=== PATIENT | male | born 1955 | race Caucasian/White ===

== ENCOUNTER 2017-07-28 18:22 | Emergency (ER) | payer OTHER ==
[~2017-07-28] VITALS: Ht 175.3 cm; Wt 87.2 kg
[~2017-07-28 18:22] MED LIST: CYCL-36 PO; HYDR10SO PO; NAPR500 PO; OMEP20TA OR; TRAZ100 PO
[2017-07-28 18:24] VITALS: BP 122/75; PULSE 91; RESP 16; TEMP 98.4; O2SAT 97
[2017-07-28] MEDS ORDERED: SIMV20TA PO (18:45)
[2017-07-28] MEDS ORDERED: SODIUM CHLORIDE 0.9% FLUSH 10 ML FLUSH IVF PRN (18:45)
[2017-07-28] MEDS ORDERED: GABA300C5 PO (18:45)
[2017-07-28] MEDS ORDERED: LISI20TA PO (18:45)
[2017-07-28] MEDS ORDERED: CYMB30CA PO (18:45)
[2017-07-28 18:48] VITALS: O2SAT 95
--- NOTE | 2017-07-28 18:49 | PD ---
HPI Chief Complaint: Cardiac Complaint Time Seen by Provider: 18:45 Travel History International Travel<30 days: No Contact w/Intl Traveler<30days: No Traveled to known affect area: No History of Present Illness HPI 62-year-old male presents emergency department for evaluation of an episode of atrial fibrillation with RVR he had yesterday. He states he was at the neurologist for an episode of sciatic he was having states he generally was not feeling well yesterday feeling somewhat lethargic and a little bit nauseous yesterday. He had an EKG performed when his heart rate was found to be significantly elevated, he states he was discharged from the neurology clinic without knowing the results of that. Ultimately he was called several times today telling him that he had atrial for ablation with RVR and needed follow-up with a emergency department as soon as possible. The patient states his been feeling well today and in no distress at all. No chest pain no shortness of breath no abdominal pain no nausea vomiting or palpitations. He also endorses some minimal shortness of breath he had yesterday but none today. No history of long periods of stasis. States he has never had atrial fibrillation before. He states he has seen a vest tailor in the past and his last visit was a little over a year ago at which point a stress test which was negative. PFSH Past Medical History Hx Anticoagulant Therapy: Yes (ASA 81mg daily) Hypertension: Yes Social History Alcohol Use: Yes (OCC) Tobacco Use: No Substance Use: No Allergies-Medications (Allergen,Severity, Reaction): Coded Allergies: No Known Allergies (Unverified Adverse Reaction, Unknown, 07/28/17) Reported Meds & Prescriptions Reported Meds & Active Scripts Active Reported Gabapentin 300 Mg Cap 300 Mg PO BID Cymbalta DR (Duloxetine HCl) 30 Mg Capdr 30 Mg PO DAILY Simvastatin 20 Mg Tab 20 Mg PO DAILY Lisinopril-Hctz 20-12.5 Mg Tab 1 Tab PO DAILY Review of Systems Except as stated in HPI: all other systems reviewed are Neg Physical Exam Narrative GENERAL: Well-developed well-nourished no obvious distress. SKIN: Focused skin assessment warm/dry. HEAD: Atraumatic. Normocephalic. EYES: Pupils equal and round. No scleral icterus. No injection or drainage. ENT: No nasal bleeding or discharge. Mucous membranes pink and moist. NECK: Trachea midline. No JVD. CARDIOVASCULAR: Regular rate and rhythm with no murmurs gallops or rubs. 2+ bilateral equal pulses in all 4 extremities. RESPIRATORY: No accessory muscle use. Clear to auscultation. Breath sounds equal bilaterally. GASTROINTESTINAL: Abdomen soft, non-tender, nondistended. Hepatic and splenic margins not palpable. MUSCULOSKELETAL: No obvious deformities. No clubbing. No cyanosis. No edema. NEUROLOGICAL: Awake and alert. No obvious cranial nerve deficits. Motor grossly within normal limits. Normal speech. PSYCHIATRIC: Appropriate mood and affect; insight and judgment normal. Data Data Last Documented VS Vital Signs Date Time Temp Pulse Resp B/P (MAP) Pulse Ox O2 Delivery O2 Flow Rate FiO2 07/28/17 18:24 98.4 91 16 122/75 (91) 97 Orders Orders Ckmb (Isoenzyme) Profile (07/28/17 18:45) Complete Blood Count With Diff (07/28/17 18:45) Comprehensive Metabolic Panel (07/28/17 18:45) Magnesium (Mg) (07/28/17 18:45) Prothrombin Time / Inr (Pt) (07/28/17 18:45) Act Partial Throm Time (Ptt) (07/28/17 18:45) Troponin I (07/28/17 18:45) Chest, Single Ap (07/28/17 18:45) Ecg Monitoring (07/28/17 18:45) Iv Access Insert/Monitor (07/28/17 18:45) Oximetry (07/28/17 18:45) Oxygen Administration (07/28/17 18:45) Sodium Chloride 0.9% Flush (Ns Flush) (07/28/17 18:45) [facility] [place] Medical Decision Making Medical Screen Exam Complete: Yes Emergency Medical Condition: Yes Differential Diagnosis New onset atrial fibrillation, RVR, ACS, DC, presyncopal symptoms. Narrative Course Patient room to the emergency department, today he is in normal sinus rhythm, blood pressure is within normal limits as well and has not had any presyncopal symptoms today. Cardiac labs have been ordered, will discuss with Dr. Schaffer in 1900 shift change to follow-up labs and disposition the patient appropriately Keagan Garces MD July 28, 2017 18:49
--- NOTE | 2017-07-28 19:01 | PD ---
Physical Exam Date Seen by Provider: July 28, 2017 Time Seen by Provider: 18:59 Narrative The patient is a 62-year-old male was initially evaluated by the previous physician, Dr. Garces. Please refer to the initial history, physical, diagnostic evaluation, and treatment modality plan. The patient was signed out at 7 PM with laboratory evaluation and chest x-ray pending. Data Data Last Documented VS Vital Signs Date Time Temp Pulse Resp B/P (MAP) Pulse Ox O2 Delivery O2 Flow Rate FiO2 07/28/17 19:22 Room Air 07/28/17 19:22 105 17 118/82 (94) 98 07/28/17 18:24 98.4 Orders Orders Ckmb (Isoenzyme) Profile (07/28/17 18:45) Complete Blood Count With Diff (07/28/17 18:45) Comprehensive Metabolic Panel (07/28/17 18:45) Magnesium (Mg) (07/28/17 18:45) Prothrombin Time / Inr (Pt) (07/28/17 18:45) Act Partial Throm Time (Ptt) (07/28/17 18:45) Troponin I (07/28/17 18:45) Chest, Single Ap (07/28/17 18:45) Ecg Monitoring (07/28/17 18:45) Iv Access Insert/Monitor (07/28/17 18:45) Oximetry (07/28/17 18:45) Oxygen Administration (07/28/17 18:45) Sodium Chloride 0.9% Flush (Ns Flush) (07/28/17 18:45) CKMB (07/28/17 18:57) CKMB% (07/28/17 18:57) Metoprolol Tartrate (Lopressor) (07/28/17 19:45) Ed Discharge Order (07/28/17 19:42) Labs Laboratory Tests Test 07/28/17 18:57 White Blood Count 5.1 TH/MM3 Red Blood Count 4.59 MIL/MM3 Hemoglobin 13.8 GM/DL Hematocrit 40.3 % Mean Corpuscular Volume 87.9 FL Mean Corpuscular Hemoglobin 30.1 PG Mean Corpuscular Hemoglobin Concent 34.3 % Red Cell Distribution Width 13.4 % Platelet Count 186 TH/MM3 Mean Platelet Volume 8.1 FL Neutrophils (%) (Auto) 46.2 % Lymphocytes (%) (Auto) 36.5 % Monocytes (%) (Auto) 10.9 % Eosinophils (%) (Auto) 5.5 % Basophils (%) (Auto) 0.9 % Neutrophils # (Auto) 2.3 TH/MM3 Lymphocytes # (Auto) 1.9 TH/MM3 Monocytes # (Auto) 0.6 TH/MM3 Eosinophils # (Auto) 0.3 TH/MM3 Basophils # (Auto) 0.0 TH/MM3 CBC Comment DIFF FINAL Differential Comment Prothrombin Time 10.0 SEC Prothromb Time International Ratio 1.0 RATIO Activated Partial Thromboplast Time 26.5 SEC Blood Urea Nitrogen 12 MG/DL Creatinine 0.72 MG/DL Random Glucose 108 MG/DL Total Protein 7.4 GM/DL Albumin 4.1 GM/DL Calcium Level 9.3 MG/DL Magnesium Level 2.0 MG/DL Alkaline Phosphatase 78 U/L Aspartate Amino Transf (AST/SGOT) 39 U/L Alanine Aminotransferase (ALT/SGPT) 59 U/L Total Bilirubin 0.4 MG/DL Sodium Level 138 MEQ/L Potassium Level 3.5 MEQ/L Chloride Level 101 MEQ/L Carbon Dioxide Level 27.4 MEQ/L Anion Gap 10 MEQ/L Estimat Glomerular Filtration Rate 111 ML/MIN Total Creatine Kinase 358 U/L Creatine Kinase MB 3.2 NG/ML Creatine Kinase MB % 0.9 % Troponin I LESS THAN 0.02 NG/ML [facility] [place] Medical Record Reviewed: Yes Supervised Visit with FRANNY: No Interpretation(s) EKG reveals normal sinus rhythm with a rate of 93. RSR prime in V1. Q-wave noted in lead III. Laboratory Tests Test 07/28/17 18:57 White Blood Count 5.1 TH/MM3 Red Blood Count 4.59 MIL/MM3 Hemoglobin 13.8 GM/DL Hematocrit 40.3 % Mean Corpuscular Volume 87.9 FL Mean Corpuscular Hemoglobin 30.1 PG Mean Corpuscular Hemoglobin Concent 34.3 % Red Cell Distribution Width 13.4 % Platelet Count 186 TH/MM3 Mean Platelet Volume 8.1 FL Neutrophils (%) (Auto) 46.2 % Lymphocytes (%) (Auto) 36.5 % Monocytes (%) (Auto) 10.9 % Eosinophils (%) (Auto) 5.5 % Basophils (%) (Auto) 0.9 % Neutrophils # (Auto) 2.3 TH/MM3 Lymphocytes # (Auto) 1.9 TH/MM3 Monocytes # (Auto) 0.6 TH/MM3 Eosinophils # (Auto) 0.3 TH/MM3 Basophils # (Auto) 0.0 TH/MM3 CBC Comment DIFF FINAL Differential Comment Prothrombin Time 10.0 SEC Prothromb Time International Ratio 1.0 RATIO Activated Partial Thromboplast Time 26.5 SEC Blood Urea Nitrogen 12 MG/DL Creatinine 0.72 MG/DL Random Glucose 108 MG/DL Total Protein 7.4 GM/DL Albumin 4.1 GM/DL Calcium Level 9.3 MG/DL Magnesium Level 2.0 MG/DL Alkaline Phosphatase 78 U/L Aspartate Amino Transf (AST/SGOT) 39 U/L Alanine Aminotransferase (ALT/SGPT) 59 U/L Total Bilirubin 0.4 MG/DL Sodium Level 138 MEQ/L Potassium Level 3.5 MEQ/L Chloride Level 101 MEQ/L Carbon Dioxide Level 27.4 MEQ/L Anion Gap 10 MEQ/L Estimat Glomerular Filtration Rate 111 ML/MIN Total Creatine Kinase 358 U/L Creatine Kinase MB 3.2 NG/ML Creatine Kinase MB % 0.9 % Troponin I LESS THAN 0.02 NG/ML Last Impressions Chest X-Ray 07/28/17 7204 Signed Impressions: CONCLUSION: The lungs are clear. Differential Diagnosis Differential diagnosis includes paroxysmal atrial fibrillation, arrhythmia, near syncope, electrolyte abnormality, coronary artery disease, ischemic cardiomyopathy. Narrative Course Patient was initially evaluated by the previous physician, Dr. Garces. Please refer to the initial history, physical, diagnostic evaluation, and treatment modality plan. The patient was signed out at 7 PM with laboratory evaluation and chest x-ray pending. The patient apparently was seen at the neurologist office yesterday where he was noted to have atrial fibrillation with RVR. Today 's EKG reveals normal sinus rhythm with an RSR prime in V1, incomplete right bundle branch block, Q-wave in lead III. The patient appears to have paroxysmal atrial fibrillation, now in sinus rhythm and rate controlled. Chest x-ray is unremarkable. Electrolytes are normal. Troponin is less than 0.02. The patient has hypertension but denies any history of congestive heart failure , diabetes, or stroke. The patient already takes a baby aspirin daily, is currently on lisinopril and hydrochlorothiazide for blood pressure management. I had a discussion with the patient regarding 23 hour observation for new onset proximal atrial fibrillation versus outpatient follow-up. The patient would prefer to follow-up as an outpatient. Therefore, patient is advised to continue aspirin daily, I will place the patient on metoprolol 12.5 mg twice a day. He is advised to follow-up with [facility] cardiology as he may benefit from outpatient echocardiogram and/or Holter monitor. I also had a discussion with the patient regarding possibility of oral anticoagulation for his atrial fibrillation to decrease his stroke risk. The patient agrees and understands. Diagnosis Primary Impression: Paroxysmal atrial fibrillation Patient Instructions: General Instructions Additional Instruction: Please provide the patient a copy of his EKG and lab results at discharge. Metoprolol twice a day as directed. Continue aspirin daily. Follow-up with [facility] cardiology, he may benefit from echocardiogram and/or Holter monitor as well as discussion about anticoagulation to decrease stroke risk with proximal atrial fibrillation. Med/Other Pt SpecificInfo: Prescription(s) given Scripts Metoprolol Tartrate (Metoprolol Tartrate) 25 Mg Tab 12.5 MG PO BID for 30 Days, #30 TAB 0 Refills Prov: Brice Schaffer MD 07/28/17 Disposition: 01 DISCHARGE HOME Condition: Stable Brice Schaffer MD July 28, 2017 19:01
[2017-07-28 19:03] LABS: AUTOMATED NEUTROPHIL # 2.3 TH/MM3 (1.8-7.7); BASOPHIL % 0.9 % (0.0-2.0); EOSINOPHIL # 0.3 TH/MM3 (0-0.4); EOSINOPHIL % 5.5 % (0.0-4.0); HEMATOCRIT 40.3 % (39.0-51.0); HEMOGLOBIN 13.8 GM/DL (13.0-17.0); LYMPH % 36.5 % (9.0-44.0); LYMPHOCYTE # 1.9 TH/MM3 (1.0-4.8); MEAN CELL VOLUME 87.9 FL (80.0-100.0); MEAN CORPUSCULAR HEMOGLOBIN 30.1 PG (27.0-34.0); MEAN CORPUSCULAR HGB CONC 34.3 % (32.0-36.0); MEAN PLATELET VOLUME 8.1 FL (7.0-11.0); MONO % 10.9 % (0.0-8.0); MONOCYTE # 0.6 TH/MM3 (0-0.9); NEUT % 46.2 % (16.0-70.0); PLATELET COUNT 186 TH/MM3 (150-450); RED BLOOD COUNT 4.59 MIL/MM3 (4.50-5.90); RED CELL DISTRIBUTION WIDTH 13.4 % (11.6-17.2); WHITE BLOOD COUNT 5.1 TH/MM3 (4.0-11.0)
[2017-07-28 19:11] LABS: CHLORIDE 101 MEQ/L (98-107); SODIUM (NA) 138 MEQ/L (136-145)
[2017-07-28 19:14] LABS: CALCIUM 9.3 MG/DL (8.5-10.1)
[2017-07-28 19:15] LABS: ALBUMIN 4.1 GM/DL (3.4-5.0); BICARBONATE 27.4 MEQ/L (21.0-32.0); BLOOD UREA NITROGEN 12 MG/DL (7-18); GLUCOSE,RANDOM 108 MG/DL (74-106)
[2017-07-28 19:18] LABS: ALT (GPT) 59 U/L (12-78); AST (GOT) 39 U/L (15-37); CREATININE 0.72 MG/DL (0.60-1.30); GLOMERULAR FILTRATION RATE 111 ML/MIN (>89)
[2017-07-28 19:20] LABS: TOTAL BILIRUBIN ADULT 0.4 MG/DL (0.2-1.0); TOTAL PROTEIN 7.4 GM/DL (6.4-8.2)
--- NOTE | 2017-07-28 19:20 | RADRPT ---
EXAM DATE: 07/28/2017 7:18 PM EDT AGE/SEX: 62 years / Male INDICATIONS: Chest discomfort. Atrial fibrillation. CLINICAL DATA: This is the patient's initial encounter. Patient reports that signs and symptoms have been present for 2 days and indicates a pain score of 2/10. MEDICAL/SURGICAL HISTORY: Rheumatoid arthritis. Hypercholesterolemia. Hypertension. Sciatica . None. COMPARISON: No prior [facility] exams available for comparison. FINDINGS: A single AP view of the chest demonstrates the lungs to be symmetrically aerated without e vidence of mass, infiltrate or effusion. The cardiomediastinal contours are unremarkable. Osseous s tructures are intact. CONCLUSION: The lungs are clear. Electronically signed by: Adin Benavides MD 07/28/2017 7:19 PM EDT
[2017-07-28 19:21] LABS: ALKALINE PHOSPHATASE 78 U/L (45-117)
[2017-07-28 19:22] VITALS: BP 118/82; PULSE 105; RESP 17; O2SAT 98
[2017-07-28 19:23] LABS: TROPONIN I LESS THAN 0.02 NG/ML (0.02-0.05)
[2017-07-28] MEDS ORDERED: METOPROLOL TARTRATE 25 MG TAB PO ONE (19:45)
[2017-07-28] MEDS ORDERED: METO25TA3 PO (19:47)
[2017-07-28] MEDS ORDERED: PILL SPLITTER OTHER PRN (20:00)
--- NOTE | 2017-07-28 20:20 | EKG ---
Date Performed: 07/28/2017 Time Performed: 18:31:58 PTAGE: 62 years EKG: Sinus rhythm INCOMPLETE RIGHT BUNDLE BRANCH BLOCK ABNORMAL ECG NO PREVIOUS TRACING DOCTOR: Tate Muñoz Interpretating Date/Time 07/28/2017 20:19:11
[2017-07-28 20:24] VITALS: BP 116/82
== END 2017-07-28 20:31 | disposition home or self-care (01) ==
LOC: PHED 18:22
DX: I48.0 Paroxysmal atrial fibrillation (principal); R06.02 Shortness of breath; I10 Essential (primary) hypertension
CPT/HCPCS: 71045; 80053; 82550; 82552; 83735; 84484; 85025; 85610; 85730; 93005; 99285

== ENCOUNTER 2017-09-19 23:29 | Observation (INO) ==
--- NOTE | 2017-09-20 00:35 | XR ---
EXAM DATE: 09/20/2017 12:25 AM EDT AGE/SEX: 62 years / Male INDICATIONS: Dizziness. Syncopal episode. CLINICAL DATA: This is the patient's initial encounter. Patient reports that signs and symptoms have been present for 1 day and indicates a pain score of 0/10. MEDICAL/SURGICAL HISTORY: . Rheumatoid arthritis. Hypercholesterolemia. Hypertension. Sciatica. . Multiple orthopedic surgeries. COMPARISON: [facility], CHEST SINGLE AP, 07/28/2017. . FINDINGS: Slight scarring or subsegmental atelectasis in the left lung base. Right lung is clear. No pleural ef fusion. Cardiac contours are stable and satisfactory. Mild degenerative changes in the spine. CONCLUSION: Minimal left base parenchymal opacity. Electronically signed by: Armani Temple MD 09/20/2017 12:34 AM EDT
[2017-09-20 01:00] LABS: Baso # (Auto) 0.1 th/mm3 (0.0-0.2); Baso % (Auto) 0.6 % (0.0-2.0); Eos # (Auto) 0.3 th/mm3 (0.0-0.4); Eos % (Auto) 4.1 % (0.0-4.0); Hematocrit 36.4 % (39.0-51.0); Hemoglobin 12.2 gm/dL (13.0-17.0); Lymph # (Auto) 1.6 th/mm3 (1.0-4.8); Lymph % (Auto) 19.2 % (9.0-44.0); Mean Corpuscular HGB Conc 33.5 % (32.0-36.0); Mean Corpuscular Hemoglobin 30.9 pg (27.0-34.0); Mean Corpuscular Volume 92.3 fL (80.0-100.0); Mean Platelet Volume 8.4 fL (7.0-11.0); Mono # (Auto) 0.9 th/mm3 (0.0-0.9); Mono % (Auto) 10.9 % (0.0-8.0); Neut # (Auto) 5.5 th/mm3 (1.8-7.7); Neut % (Auto) 65.2 % (16.0-70.0); Platelet Count 143 th/mm3 (150-450); Red Blood Count 3.95 mil/mm3 (4.50-5.90); Red Cell Distribution Width 15.4 % (11.6-17.2); White Blood Count 8.4 th/mm3 (4.0-11.0)
[2017-09-20 01:20] LABS: Alanine Aminotransferase 42 U/L (12-78); Albumin 3.4 g/dL (3.4-5.0); Alkaline Phosphatase 61 U/L (45-117); Anion Gap 13 meq/L (5-15); Aspartate Aminotransferase 23 U/L (15-37); Blood Urea Nitrogen 29 mg/dL (7-18); Calcium 7.4 mg/dL (8.5-10.1); Carbon Dioxide 21.9 meq/L (21.0-32.0); Chloride 105 meq/L (98-107); Glomerular Filtration Rate 31 mL/min (>89); Glucose,Random 86 mg/dL (74-106); Magnesium 1.7 mg/dL (1.5-2.5); Potassium 3.7 meq/L (3.5-5.1); Sodium 140 meq/L (136-145); Total Protein 5.9 g/dL (6.4-8.2)
[2017-09-20] MEDS ORDERED: Sod Chloride 0.9% Inj 1,000 ML IV.SIG ONE (01:45)
--- NOTE | 2017-09-20 02:21 | ED ---
HPI General Chief complaint: Syncope Stated complaint: Syncope Time Seen by Provider: 09/19/17 23:43 Source: patient, family and EMS History of Present Illness HPI narrative: Is a 62-year-old male presents emerged department after syncopal episode. He reports that he was outside the past 2 days or so. He has had trouble with his blood pressure being too high and has been adjusting his medicines. He reportedly came back and from quitting undergrown felt faint. He went to lay down for a little bit. When he went to wake him up to go to bed , he said he did not feel well and that when ago. He tried [place] a chair and when they stood him up he passed out. The fire department his blood pressure was 60/30. He still can diaphoretic. Respiratory rate of 4. They bagged him on scene. [employer] arrival he was slowly recovering. He had total 1500 mL's of IV fluids prior to ED arrival. Medical history significant for hypertension. Related Data Home Medications Medication Instructions Recorded Confirmed alfuzosin 10 mg PO DAILY 09/19/17 09/19/17 diazepam 10 mg PO DAILY 09/19/17 09/19/17 duloxetine [Cymbalta] 60 mg PO DAILY 09/19/17 09/19/17 gabapentin 300 mg PO QPM 09/19/17 09/19/17 hydrocodone-acetaminophen 1 tab PO Q4H PRN 09/19/17 09/19/17 lisinopril-hydrochlorothiazide 2 tab PO DAILY 09/19/17 09/19/17 sildenafil 25 mg PO DAILY 09/19/17 09/19/17 simvastatin 40 mg PO QPM 09/19/17 09/19/17 testosterone 1 packet TRANSDERMAL QAM 09/19/17 09/19/17 Allergies Allergy/AdvReac Type Severity Reaction Status Date / Time No Known Allergies Allergy Unknown Uncoded 07/28/17 19:48 Review of Systems ROS Unobtainable All other systems reviewed negative except as stated in HPI [facility] Medical History Medical History High cholesterol (Acute) Hypertension (Acute) Surgical History Surgical History History of back surgery (Acute) Exam Narrative Exam Narrative: GENERAL: This is a well-appearing 62-year-old man, no acute distress. SKIN: Focused skin assessment warm/dry. HEAD: Atraumatic. Normocephalic. EYES: Pupils equal and round. No scleral icterus. No injection or drainage. ENT: No nasal bleeding or discharge. Mucous membranes pink and moist. NECK: Trachea midline. No JVD. CARDIOVASCULAR: Regular rate and rhythm. No murmur appreciated. RESPIRATORY: No accessory muscle use. Clear to auscultation. Breath sounds equal bilaterally. GASTROINTESTINAL: Abdomen soft, non-tender, nondistended. Hepatic and splenic margins not palpable. MUSCULOSKELETAL: No obvious deformities. No clubbing. No cyanosis. No edema. NEUROLOGICAL: Awake and alert. No obvious cranial nerve deficits. Motor grossly within normal limits. Normal speech. PSYCHIATRIC: Appropriate mood and affect; insight and judgment normal. Course Initial Documented Vital Signs Temperature 97.9 F 09/19/17 23:59 Pulse Rate 78 09/19/17 23:59 Respiratory Rate 18 09/19/17 23:59 Blood Pressure 84/49 L 09/19/17 23:59 Pulse Oximetry 98 09/19/17 23:59 Last Documented Vital Signs Temperature 97.9 F 09/19/17 23:59 Pulse Rate 81 09/20/17 00:04 Respiratory Rate 18 09/19/17 23:59 Blood Pressure 84/49 L 09/19/17 23:59 Pulse Oximetry 98 09/20/17 00:05 Medical Decision Making MDM Narrative Medical decision making narrative: 62-year-old man who presents to the emergency department with syncopal episode. He has been persistently hypotensive and is still 80s-90s systolic. No recent changes to his blood pressure medications. This was despite 2 L of fluid. Labs show acute kidney injury. EKGs without any evidence of arrhythmia. This is likely acute kidney injury and dehydration resulting in hypotension and syncope. Recommend admission for observation. I spoke with Dr. Travis. Will admit patient. Lab Data Lab results reviewed: Yes I reviewed the patient's lab results. Result diagrams: 09/20/17 00:00 09/20/17 00:00 Lab Results 09/20/17 09/20/17 Range/Units 00:00 00:00 WBC 8.4 (4.0-11.0) th/mm3 RBC 3.95 L (4.50-5.90) mil/mm3 Hgb 12.2 L (13.0-17.0) gm/dL Hct 36.4 L (39.0-51.0) % MCV 92.3 (80.0-100.0) fL MCH 30.9 (27.0-34.0) pg MCHC 33.5 (32.0-36.0) % RDW 15.4 (11.6-17.2) % Plt Count 143 L (150-450) th/mm3 MPV 8.4 (7.0-11.0) fL Neut % (Auto) 65.2 (16.0-70.0) % Lymph % (Auto) 19.2 (9.0-44.0) % Gage % (Auto) 10.9 H (0.0-8.0) % Eos % (Auto) 4.1 H (0.0-4.0) % Baso % (Auto) 0.6 (0.0-2.0) % Neut # (Auto) 5.5 (1.8-7.7) th/mm3 Lymph # (Auto) 1.6 (1.0-4.8) th/mm3 Gage # (Auto) 0.9 (0.0-0.9) th/mm3 Eos # (Auto) 0.3 (0.0-0.4) th/mm3 Baso # (Auto) 0.1 (0.0-0.2) th/mm3 WBC Differential . Differential Comment Auto diff final Sodium 140 (136-145) meq/L Potassium 3.7 (3.5-5.1) meq/L Chloride 105 (98-107) meq/L Carbon Dioxide 21.9 (21.0-32.0) meq/L Anion Gap 13 (5-15) meq/L BUN 29 H (7-18) mg/dL Creatinine 2.20 H (0.60-1.30) mg/dL Estimated GFR 31 L (>89) mL/min Random Glucose 86 (74-106) mg/dL Calcium 7.4 L* (8.5-10.1) mg/dL Prot Corrected Calcium 8.1 L (8.5-10.1) mg/dL Magnesium 1.7 (1.5-2.5) mg/dL Total Bilirubin 0.3 (0.2-1.0) mg/dL AST 23 (15-37) U/L ALT 42 (12-78) U/L Alkaline Phosphatase 61 (45-117) U/L Troponin I Less than 0.02 L (0.02-0.05) ng/mL Total Protein 5.9 L (6.4-8.2) g/dL Albumin 3.4 (3.4-5.0) g/dL Imaging Data Radiologist's impression: Chest X-Ray 09/19/17 23:44 CONCLUSION: Minimal left base parenchymal opacity. ECG Data Attestation: I personally reviewed and interpreted this ECG as follows: Interpretation: Normal sinus rhythm at a rate of 81, normal axis, normal incomplete right bundle type pattern, small inferior Q waves, no definite evidence of acute ischemia. Discharge Plan Discharge Disposition Patient Disposition: 30 Still Patient Discharge Condition Condition: Stable Physicians Team ED Provider: Uriel Nielson Primary Care Provider: UNKNOWN, Rxs /Orders / Referrals /Forms Prescriptions: No Action lisinopril-hydrochlorothiazide 10-12.5 mg Tablet 2 tab PO DAILY RF: 0 simvastatin 40 mg Tablet 40 mg PO QPM RF: 0 diazepam 10 mg Tablet 10 mg PO DAILY RF: 0 alfuzosin 10 mg Tablet Extended Release 24 Hr 10 mg PO DAILY RF: 0 sildenafil 25 mg Tablet 25 mg PO DAILY RF: 0 testosterone 1 % (50 mg/5 gram) Gel In Packet 1 packet TRANSDERMAL QAM RF: 0 duloxetine [Cymbalta] 60 mg Capsule,Delayed Release(Dr/Ec) 60 mg PO DAILY RF: 0 gabapentin 300 mg Tablet Extended Release 24 Hr 300 mg PO QPM RF: 0 hydrocodone-acetaminophen 10-325 mg Tablet 1 tab PO Q4H PRN (Reason: Pain) RF: 0 Status ED Status: With Doctor
[2017-09-20] MEDS: Sod Chloride 0.9% Inj 1,000 ML IV.CONT SCH ×3 (05:36→21:40)
--- NOTE | 2017-09-20 09:05 | P.HPIM ---
History of Present Illness Primary Care Physician: Prema Atkinson MD Chief Complaint: Syncope History of Present Illness: Mr. Garay is a pleasant 62 y/o WM with HTN, hyperlipidemia, chronic back pain and BPH. He was brought to the ED at [facility] [place] on 09/20/17 after he had a syncopal episode at home witnessed by his . He reports that two days ago he was working up in the attic and was sweating quite profusely but did not drink any more water than he typically does. Yesterday morning he took his normal BP medication, Lisinopril/HCTZ 20/25 in the morning but he also took a Sildenafil tablet as well. He did not check his BP yesterday morning prior to taking these medications as he does not typically check his BP. His reports that the pt seemed rather fatigued yesterday and around 1500 yesterday afternoon he laid down on the couch to take a nap and slept until around 2200 last night. When his woke him up to go to bed he had a syncopal episode when he tried sitting up from the couch. His checked his BP and it was reported as being in the 60s/40s. She tried bringing a rolling chair over to sit him in to wheel him to the bedroom but he was either syncopal or presyncopal with her attempts to move him. She rechecked his BP and it was even lower so she called emergency services. Per the ED records the pts blood pressure was 60/30 when fire rescue arrived. He was diaphoretic with a respiratory rate of 4 and they bagged him on the scene. Upon [employer] arrival he was slowly recovering. He was given a total of 1500 mL's of IV fluids prior to ED arrival. In the ED his BP was 83/59 and he received another 1000mL bolus of NS and then continued on NS at 125ml/ hr. His BP around 0400 this morning had improved to 111/66. He states that he is feeling back to his normal baseline. He denies any recent changes in his medications or changes in his weight. His labs in the ED noted EMMANUEL with Cr 2.20 with his baseline Cr around 0.8-0.9. He states that he did not drink much of anything yesterday. Denies any chest pain, SOB, palpitations, headache, dizziness, nausea/vomiting, abdominal pain, or changes in bowel habits. Past Medical Hx Sinus tach with PACs HTN Hyperlipidemia OA/sciatica/chronic back pain BPH ED GERD Past Surgical Hx Three knee surgeries Bilateral shoulder surgeries Back surgery Family Hx Father with hx of CAD/NE around age 40 Social Hx (+)Hx of tobacco use, smoked about 1ppd for 30+ years, quit 6 years ago (+)Alcohol use, socially Denies any illicit drug use - Diagnosis (1) Syncope (2) Hypotension (3) Hypertension (4) EMMANUEL (acute kidney injury) (5) Dehydration (6) Hyperlipidemia (7) Chronic back pain Review of Systems All other systems reviewed negative except as stated in HPI Constitutional: Denies chills, Denies fever(s), Denies headache(s), Denies weakness, Denies weight gain, Denies weight loss Eyes: Denies double vision, Denies loss of vision Ears, Nose, Mouth, and Throat: Denies hearing loss, Denies sinus pressure, Denies sore throat, Denies throat swelling Cardiovascular: Reports excessive sweating, Reports fainting, Denies chest pain , Denies chest pain at rest, Denies chest pain with activity, Denies generalized swelling, Denies lightheadedness, Denies shortness of breath, Denies shortness of breath with activity Respiratory: Denies chest congestion, Denies cough, Denies shortness of breath Gastrointestinal: Denies abdominal pain, Denies constipation, Denies loose stools, Denies nausea, Denies vomiting Genitourinary: Denies urinary frequency, Denies urinary hesitancy, Denies urinary incontinence Musculoskeletal: Denies abnormal walking, Denies neck pain, Denies tingling Skin/Breast: Denies rash Neurologic: Reports fainting, Denies abnormal speech, Denies confusion, Denies loss of vision, Denies seizure-like activity, Denies tingling/numbness/burning sensations Hematologic/Lymphatic: Denies easy bleeding, Denies easy bruising PMFSH - History History Provided By: Patient - Medical History Medical History: Medical History (Last Reviewed 09/20/17 @ 02:16 by Uriel Nielson MD) High cholesterol Hypertension - Surgical History Surgical History: Surgical History (Last Reviewed 09/20/17 @ 02:16 by Uriel Nielson MD) History of back surgery - Tobacco History Second Hand Smoke Exposure: No Tobacco Use In Past 30 Days: No Smoking Status: Former smoker Tobacco Type: Cigarettes - Alcohol History How Often Do You Have a Drink Containing Alcohol: 2 to 4 times a month - Substance Use History Substance History: No History of Abuse Medications and Allergies Allergies Allergy/AdvReac Type Severity Reaction Status Date / Time No Known Allergies Allergy Unknown Uncoded 07/28/17 19:48 Home Medications Medication Instructions Recorded Confirmed Type alfuzosin 10 mg PO HS 09/19/17 09/20/17 History diazepam 10 mg PO HS 09/19/17 09/20/17 History duloxetine [Cymbalta] 60 mg PO DAILY 09/19/17 09/19/17 History gabapentin 300 mg PO BID 09/19/17 09/20/17 History hydrocodone-acetaminophen 1 tab PO Q4H PRN 09/19/17 09/19/17 History simvastatin 40 mg PO QPM 09/19/17 09/19/17 History testosterone 1 packet TRANSDERMAL QAM 09/19/17 09/19/17 History Active Medications: Active Medications Sodium Chloride (Ns Inj) 1,000 mls @ 125 mls/hr IV.CONT .Q8H CARMELO Last Admin: 09/20/17 05:36 Dose: 125 mls/hr Exam Vital signs: Vital Signs 09/19/17 23:59 09/20/17 00:04 09/20/17 00:05 Temperature 97.9 F Pulse Rate 78 81 Respiratory Rate 18 Blood Pressure 84/49 L Pulse Oximetry 98 98 09/20/17 04:00 09/20/17 05:09 Temperature 97.7 F Pulse Rate 100 H Respiratory Rate 18 Blood Pressure 111/66 Pulse Oximetry 97 100 Intake & Output 09/19/17 09/20/17 09/20/17 18:59 06:59 18:59 Weight 85.275 kg Narrative: GENERAL: NAD, AAOx3 SKIN: Warm and dry. HEENT: Atraumatic. Normocephalic. Pupils equal and round. No scleral icterus. No injection or drainage. No nasal bleeding or discharge. Mucous membranes pink and moist. NECK: Trachea midline. No JVD. CARDIOVASCULAR: Regular rate and rhythm. RESPIRATORY: No accessory muscle use. Clear to auscultation. Breath sounds equal bilaterally. GASTROINTESTINAL: Abdomen soft, non-tender, nondistended. Hepatic and splenic margins not palpable. MUSCULOSKELETAL: Extremities without clubbing, cyanosis, or edema. No obvious deformities. NEUROLOGICAL: Awake and alert. No obvious cranial nerve deficits. Motor grossly within normal limits. Five out of 5 muscle strength in the arms and legs. Normal speech. PSYCHIATRIC: Appropriate mood and affect; insight and judgment normal. Results - Labs CBC & Chem 7: 09/20/17 00:00 09/21/17 10:07 Labs: Short CBC 09/20/17 Range/Units 00:00 WBC 8.4 (4.0-11.0) th/mm3 Hgb 12.2 L (13.0-17.0) gm/dL Hct 36.4 L (39.0-51.0) % Plt Count 143 L (150-450) th/mm3 BMP 09/20/17 00:00 Sodium 140 Potassium 3.7 Chloride 105 Carbon Dioxide 21.9 BUN 29 H Creatinine 2.20 H Calcium 7.4 L* Cardiac Enzymes 09/20/17 Range/Units 00:00 Troponin I Less than 0.02 L (0.02-0.05) ng/mL Liver Function 09/20/17 Range/Units 00:00 Total Bilirubin 0.3 (0.2-1.0) mg/dL AST 23 (15-37) U/L ALT 42 (12-78) U/L Alkaline Phosphatase 61 (45-117) U/L Albumin 3.4 (3.4-5.0) g/dL - Imaging Impressions Chest X-Ray 09/19/17 23:44 CONCLUSION: Minimal left base parenchymal opacity. Caprini VTE Risk Assessment Caprini VTE Risk Assessment: Moderate/High Risk (score >= 2) Caprini Risk Assessment Model: Point Value = 1 Point Value = 2 Point Value = 3 Point Value = 5 Age 41-60 Minor surgery BMI > 25 kg/m2 Swollen legs Varicose veins or History of unexplained or recurrent spontaneous Oral contraceptives or hormone replacement Sepsis (< 1 month) Serious lung disease, including pneumonia (< 1 month) Abnormal pulmonary function Acute myocardial infarction Congestive heart failure (< 1 month) History of inflammatory bowel disease Medical patient at bed rest Age 61-74 Arthroscopic surgery Major open surgery (> 45 min) Laparoscopic surgery (> 45 min) Malignancy Confined to bed (> 72 hours) Immobilizing plaster cast Central venous access Age >= 75 History of VTE Family history of VTE Factor V Leiden Prothrombin [id number] Lupus anticoagulant Anticardiolipin antibodies Elevated serum homocysteine Heparin-induced thrombocytopenia Other congenital or acquired thrombophilia Stroke (< 1 month) Elective arthroplasty Hip, pelvis, or leg fracture Acute spinal cord injury (< 1 month) Prophylaxis Regimen: Total Risk Factor Score Risk Level Prophylaxis Regimen 0-1 Low Early ambulation 2 Moderate Order ONE of the following: *Sequential Compression Device (SCD) *Heparin 5000 units SQ BID 3-4 Higher Order ONE of the following medications: *Heparin 5000 units SQ TID *Enoxaparin/Lovenox 40 mg SQ daily (WT < 150 kg, CrCl > 30 mL/min) *Enoxaparin/Lovenox 30 mg SQ daily (WT < 150 kg, CrCl > 10-29 mL/min) *Enoxaparin/Lovenox 30 mg SQ BID (WT < 150 kg, CrCl > 30 mL/min) AND/OR *Sequential Compression Device (SCD) 5 or more Highest Order ONE of the following medications: *Heparin 5000 units SQ TID (Preferred with Epidurals) *Enoxaparin/Lovenox 40 mg SQ daily (WT < 150 kg, CrCl > 30 mL/min) *Enoxaparin/Lovenox 30 mg SQ daily (WT < 150 kg, CrCl > 10-29 mL/min) *Enoxaparin/Lovenox 30 mg SQ BID (WT < 150 kg, CrCl > 30 mL/min) AND *Sequential Compression Device (SCD) Assessment and Plan - Assessment (1) Syncope Code(s): R55 - Syncope and collapse Status: Acute Plan: Syncope Hypotension Dehydration - Pt is a 62 y/o WM with HTN, hyperlipidemia, chronic back pain and BPH. - He was brought to the ED at [facility] [place] on 09/20/17 after he had a syncopal episode at home witnessed by his . This was likely secondary to hypotension/vasovagal from taking his normal BP meds as well as Sildenafil yesterday morning in the setting of some dehydration from wokring in the attic the day prior. - Per the ED records the pts blood pressure was 60/30 when fire rescue arrived. He was given a total of 1500 mL's of IV fluids prior to ED arrival. In the ED his BP was 83/59 and he received another 1000mL bolus of NS and then continued on NS at 125ml/hr. His BP around 0400 this morning had improved to 111/66. - Hold home BP meds - Discussed effects of Sildenafil and its potential to lower BP - Continue IVF - telemetry - Monitor BP today - Supportive care - DVT prophylaxis with SCDs EMMANUEL Dehydration - His labs in the ED noted EMMANUEL with Cr 2.20 with his baseline Cr around 0.8- 0.9. - This is likely related to dehydration/hypoperfusion - Cont. IVF - Recheck labs today HTN - Hold home meds - Monitor Hyperlipidemia - COnt. home meds Chronic back pain - Cont. home meds as BP allows The exam, history, and the medical decision-making described in the above note were completed with the assistance of the mid-level provider. I reviewed and agree with the findings presented. I attest that I had a [id number] encounter with the patient on the same day, and personally performed and documented my assessment and findings in the medical record. (2) Hypotension Code(s): I95.9 - Hypotension, unspecified Status: Acute (3) Hypertension Code(s): I10 - Essential (primary) hypertension Status: Acute (4) EMMANUEL (acute kidney injury) Code(s): N17.9 - Acute kidney failure, unspecified Status: Acute (5) Dehydration Code(s): E86.0 - Dehydration Status: Acute (6) Hyperlipidemia Code(s): E78.5 - Hyperlipidemia, unspecified Status: Acute (7) Chronic back pain Code(s): M54.9 - Dorsalgia, unspecified; G89.29 - Other chronic pain Status: Acute H&P: Quality - VTE Deep Vein Thrombosis/Pulmonary Embolism Present on Admission: No
[2017-09-20] MEDS ORDERED: Acetaminophen 325 MG Tablet PO PRN (09:31)
[2017-09-20] MEDS ORDERED: Temazepam 15 MG Capsule PO PRN (09:31)
[2017-09-20] MEDS: Duloxetine 60 MG DR Capsule PO SCH (13:40)
[2017-09-20 14:11] LABS: Calcium 8.5 mg/dL (8.5-10.1); Carbon Dioxide 25.8 meq/L (21.0-32.0)
[2017-09-20] MEDS: Gabapentin 300 MG Capsule PO SCH ×2 (14:52→21:40)
[2017-09-20] MEDS ORDERED: Gabapentin 300 MG Capsule PO SCH (21:00)
[2017-09-20] MEDS: Senna/Docusate Sodium 8.6/50 MG Tablet PO SCH (21:40)
[2017-09-21] MEDS: Sod Chloride 0.9% Inj 1,000 ML IV.CONT SCH (05:15)
[2017-09-21] MEDS: Gabapentin 300 MG Capsule PO SCH (08:34)
[2017-09-21] MEDS: Duloxetine 60 MG DR Capsule PO SCH (08:34)
[2017-09-21] MEDS: Senna/Docusate Sodium 8.6/50 MG Tablet PO SCH (08:34)
--- NOTE | 2017-09-21 08:46 | P.PNIM ---
Subjective Interval history: Pt feeling overall better today and back to his baseline. He is ambulating without difficulty His BP is low normal, off medications He reports that prior to this hospitalization he also had two incidents of syncope or near syncope which he thinks there may be a correlation to the Sildenafil use when these episodes have occurred previously Physical Exam Vital signs: Vital Signs 09/20/17 09:00 09/20/17 12:00 09/20/17 16:00 Temperature 99.0 F 98.1 F Pulse Rate 72 90 94 H Respiratory Rate 16 16 Blood Pressure 107/62 125/73 Pulse Oximetry 96 09/20/17 17:20 09/20/17 20:00 09/21/17 00:00 Temperature 99.0 F 98.2 F Pulse Rate 75 83 76 Respiratory Rate 18 17 Blood Pressure 134/85 133/66 Pulse Oximetry 96 94 L 09/21/17 04:00 09/21/17 04:45 09/21/17 08:01 Temperature 98.1 F 99.0 F Pulse Rate 70 71 79 Respiratory Rate 17 16 Blood Pressure 112/70 129/75 Pulse Oximetry 97 95 Intake & Output 09/20/17 09/21/17 09/21/17 18:59 06:59 18:59 Intake Total 1000 / 1000 3000 / 3000 Balance 1000 / 1000 3000 / 3000 Intake: IV 1000 / 1000 3000 / 3000 NS Inj 1,000 ML @ 125 mls/hr IV 1000 / 1000 2000 / 1999 .CONT .Q8H [facility] Rx#:[id number] Narrative: GENERAL: NAD, AAOx3 CARDIO: Regular RESP: Breath sounds equal bilaterally. No accessory muscle use. ABD: Abdomen soft, non-tender, nondistended. EXT: No cyanosis, or edema. Results - Labs CBC & Chem 7: 09/20/17 00:00 09/21/17 10:07 Laboratory Results - last 24 hr 09/20/17 12:55 Sodium 140 Potassium 4.0 Chloride 103 Carbon Dioxide 25.8 Anion Gap 11 BUN 25 H Creatinine 1.10 Estimated GFR 68 L Random Glucose 117 H Calcium 8.5 D - Imaging Chest X-Ray 09/19/17 23:44 CONCLUSION: Minimal left base parenchymal opacity. Assessment and Plan - Assessment (1) Syncope Code(s): R55 - Syncope and collapse Status: Acute Plan: Syncope Hypotension Dehydration - Pt is a 62 y/o WM with HTN, hyperlipidemia, chronic back pain and BPH. - He [place] [facility] [place] after he had a syncopal episode at home witnessed by his . This was likely secondary to hypotension/vasovagal from taking his normal BP meds as well as Sildenafil yesterday morning in the setting of some dehydration from wokring in the attic the day prior. - Per the ED records the pts blood pressure was 60/30 when fire rescue arrived. He was given a total of 1500 mL's of IV fluids prior to ED arrival. In the ED his BP was 83/59 and he received another 1000mL bolus of NS and then continued on NS at 125ml/hr. - His BP has improved to low normal - We will continue to hold home BP meds at discharge. - Discussed effects of Sildenafil and its potential to lower BP and recommended that he discontinue use of this until he discusses things further with his PCP. - Pt is stable for discharge today. He will need to keep a daily log of his BP reading and pulse readings to present to his PCP at followup - Should his BP start to rise over 140 systolic before he sees his PCP he can resume his Lisinopril/HCTZ but continue to monitor his BP closely - Pt should followup with his PCP in 1 week EMMANUEL Dehydration - His labs in the ED noted EMMANUEL with Cr 2.20 with his baseline Cr around 0.8- 0.9. - This is likely related to dehydration/hypoperfusion - Pt was given continuous IVF - Recheck labs on 09/20 with improvement in his Cr to 1.10 - Repeat labs pending for this morning. HTN - Hold home meds - Monitor Hyperlipidemia - Cont. home meds Chronic back pain - Cont. home meds as BP allows (2) Hypotension Code(s): I95.9 - Hypotension, unspecified Status: Acute (3) Hypertension Code(s): I10 - Essential (primary) hypertension Status: Acute (4) EMMANUEL (acute kidney injury) Code(s): N17.9 - Acute kidney failure, unspecified Status: Acute (5) Dehydration Code(s): E86.0 - Dehydration Status: Acute (6) Hyperlipidemia Code(s): E78.5 - Hyperlipidemia, unspecified Status: Acute - Attending Attestation Patient examined. Assessment and plan formulated with Katelynn Magaña PA-C. I agree with the above. Pt's blood pressure readings have been stable off BP medications. Pt is NOT to resume BP medications upon discharge. See orders. Pt instructed to keep daily blood pressure log and follow up with his PCP in one week.
[2017-09-21 10:37] LABS: Anion Gap 8 meq/L (5-15); Blood Urea Nitrogen 12 mg/dL (7-18); Calcium 8.5 mg/dL (8.5-10.1); Carbon Dioxide 26.2 meq/L (21.0-32.0); Chloride 108 meq/L (98-107); Glomerular Filtration Rate Greater Than 89 mL/min (>89); Glucose,Random 109 mg/dL (74-106); Potassium 3.8 meq/L (3.5-5.1); Sodium 142 meq/L (136-145)
--- NOTE | 2017-09-22 16:55 | ECG ---
Date Performed: 09/19/2017 Time Performed: 23:51:55 PTAGE: 62 years EKG: Sinus rhythm LOW QRS VOLTAGE IN PRECORDIAL LEADS INCOMPLETE RIGHT BUNDLE BRANCH BLOCK POSSIBLE INFERIOR MYOCARDIA L INFARCTION BORDERLINE ECG PREVIOUS TRACING : 07/28/2017 18.31 DOCTOR: Jeevan Douglas Interpretating Date/Time 09/22/2017 16:53:22
== END 2017-09-21 12:00 | disposition home or self-care (01) ==
LOC: NEPFCDU 23:29 → NEPE 23:29 → NEDA 09-20 02:22 → INTOOBSV 09-20 02:22 → NEPFCDU 09-20 03:50
PROVIDERS: ADMIT Hospitalist; ATTEND Hospitalist